=== PATIENT | female | born 1975 | race Caucasian/White ===

== ENCOUNTER 2023-08-12 10:46 | Emergency (ER) | payer SELFPAY ==
[2023-08-12] VITALS (17 sets, daily range): BP systolic 130–151; BP diastolic 87–96; PULSE 64–96; RESP 13–24; TEMP 36.7; O2SAT 82–99; BMI 40.8
--- NOTE | 2023-08-12 11:05 | ECG_ITS ---
[facility] Test Date: 2023-08-12 Pat Name: FERNANDO HENRIQUEZ Department: Room: - Gender: Female Paralegals: : 1975 Requested By: Order Number: [id number] Reading MD: MADDIE ALCANTARA Measurements Intervals [place] Rate: 78 P: 68 TX: 160 QRS: 33 QRSD: 80 T: 46 QT: 376 QTc: 409 Interpretive Statements 1100 Sinus rhythm 8102 Low QRS voltage in chest leads 9120 atypical ECG No previous ECG available for comparison Electronically Signed On 08-13-2023 12:35:09 EDT by MADDIE ALCANTARA
[2023-08-12 11:42] LABS: Creatine Kinase 115 U/L (26-192)
[2023-08-12 11:45] LABS: Basophils Absolute Auto 0.1 10^3/uL (0.0-0.1); Basophils Percent Auto 0.9 % (0.2-2.0); Eosinophils Percent Auto 0.3 % (0.9-7.0); Hematocrit 42.3 % (36.0-48.0); Hemoglobin 14.1 g/dL (12.0-16.0); Immature Granulocytes Abs Auto 0.06 10^3/uL (0.00-0.03); Immature Granulocytes Pct Auto 0.8 % (0.0-0.5); Lymphocytes Absolute Auto 0.8 10^3/uL (1.2-3.8); Lymphocytes Percent Auto 10.5 % (20.5-60.0); Mean Corpuscular HGB Conc 33.3 g/dL (29.9-35.2); Mean Corpuscular Hemoglobin 29.5 pg (26.7-34.0); Mean Corpuscular Volume 88.5 fL (81.0-99.0); Mean Platelet Volume 11.1 fL (9.5-13.5); Monocytes Absolute Auto 0.2 10^3/uL (0.3-0.8); Monocytes Percent Auto 2.5 % (1.7-12.0); Neutrophils Absolute Auto 6.7 10^3/uL (1.4-6.5); Platelet Count 203 10^3/uL (150-450); Red Blood Count 4.78 10^6/uL (4.20-5.40); Red Cell Distribution Width 12.1 % (11.0-15.0); White Blood Count 7.9 10^3/uL (4.0-11.0)
[2023-08-12 11:46] LABS: Alanine Aminotransferase 23 U/L (14-59); Albumin Globulin Ratio 1.1; Albumin Level 3.7 g/dL (3.4-5.0); Alkaline Phosphatase 53 U/L (46-116); Anion Gap 11.4; Aspartate Amino Transferase 6 U/L (15-37); BUN Creatinine Ratio 11.2; Bilirubin Total 0.6 mg/dL (0.2-1.0); Calcium 8.6 mg/dL (8.5-10.1); Carbon Dioxide 27.1 mmol/L (21.0-32.0); Chloride 100 mmol/L (98-107); Estimated GFR (African America >60 (>=60); Estimated GFR (Non-African Ame 50 (>=60); Globulin 3.3 g/dL; Glucose 101 mg/dL (74-106); Potassium 4.5 mmol/L (3.5-5.1); Sodium 134 mmol/L (136-145); Troponin I High Sensitivity 6.7 pg/mL (4.0-51.3)
--- NOTE | 2023-08-12 12:25 | XR_ITS ---
The [address] [address] Patient Name: FERNANDO HENRIQUEZ MRN: [id number] date: 1975 Sex: F Assigned Patient Location: ER Current Patient Location: ER Accession/Order Number: [id number] Exam Date: 08/12/2023 12:30 Report Date: 08/12/2023 12:46 At the request of: RONAL MASON Procedure: XR chest 1V EXAM: XR chest 1V HISTORY: . shortness of breath . COMPARISON: None. TECHNIQUE: Single view of the chest FINDINGS: Heart and vascularity unremarkable. Lungs are free of focal infiltrates. Grossly no acute bony abnormality is appreciated. XR/XR chest 1V IMPRESSION: No acute heart or lung disease identified. Electronically authenticated by: MIGUEL PARKINSON Date: 08/12/2023 12:46
--- NOTE | 2023-08-12 12:43 | ED_ITS ---
HPI - General Adult General Chief complaint: Seizure Stated complaint: SEIZURE Time Seen by Provider: 08/12/23 12:43 Source: patient Mode of arrival: ambulance Limitations: no limitations History of Present Illness HPI narrative: Patient is a 48yo Who is presenting to the Emergency Room after she had seizure- like activity/tardive dyskinesia. Patient has long-standing history of seizure/seizure activity. Patient does take 25 mg of Lamictal twice a day. No other seizure medications patient takes. Patient was with her in the car today, they were running errands. Patient started having lip smacking, tardive dyskinesia-like activity then straighten out her arms and legs, and then had a shaking episode for approximately a few minutes, slightly foaming at the mouth and then stop. Patient did not bite her tongue. No incontinence in the car initially today. However, patient was in bed last night, patient woke up in the bed sheets were wet with urine, patient thinks that she might of had a s mall seizure when she is sleeping. Patient also had another episode in the Emergency Room after she was in the Emergency Room for about an hour where she started having lip smacking, slightly shaking, and patient did urinate herself. Patient says that she was just admitted at [facility] 1?1.5 months ago from Tuesday through Tuesday to have continuous EEG monitoring and evaluation and multiple testing done by her neurologist. Patient's Neurologist is Dr. Montoya. Patient is here with and mother. Patient's last seizure before this episode last evening when she is sleeping and today was , early July of this year. Patient was at [facility] admitted for one week 1?1.5. Patient currently has no headache, no chest pain or shortness of breath. No bowel pain, nausea vomiting. . All systems are negative except as noted/marked. All systems reviewed and otherwise negative. . Nurses note and vital signs reviewed and patient is not hypoxic. General: The patient appears well and in no apparent distress. Patient is resting comfortably on cart. Patient is not toxic, lethargic, or listless Skin: Warm, dry, no pallor noted. There is no rash noted. No petechiae, purpura. Head: Normocephalic, atraumatic, Patient has no abrasions, lacerations or cut song noted to her tongue. Eye: Normal conjunctiva, no drainage, EOMI. PERRL Ears, Nose, Mouth, and Throat: oral mucosa is moist. Nares patent. Mouth without vesicles. Cardiovascular: Regular Rate and Rhythm, no murmur, gallop, rub. Respiratory: Patient is in no distress, no accessory muscle use, lungs are clear to auscultation, no wheezing, rales or rhonchi. Back: non-tender, no CVA tenderness bilaterally to percussion. No CT LS midline pain GI: soft, obese, no tenderness to palpation, no masses appreciated. No rebound, guarding, or rigidity noted. No flank pain bilateral, No distention Musculoskeletal: Patient has full range of motion of all of the extremities, no motor, sensory, or focal neurological deficits Neurological: A&O x3, normal speech Psychiatric: Cooperative Related Data Home Medications Medication Instructions Recorded Confirmed hydrochlorothiazide 25 mg tablet 25 mg PO DAILY 08/12/23 08/12/23 lamotrigine 25 mg tablet 50 mg PO DAILY 08/12/23 08/12/23 lisinopril 40 mg tablet 40 mg PO DAILY 08/12/23 08/12/23 Previous Rx's Medication Instructions Recorded lamotrigine 25 mg tablet (Lamictal) 50 mg PO DAILY 14 days #28 tabs 08/12/23 Allergies Allergy/AdvReac Type Severity Reaction Status Date / Time midazolam [From Versed] Allergy Severe Hives Verified 08/12/23 10:50 Exam Constitutional Vital Signs, click to edit/add: Last Vital Signs Temp 98.1 F 08/12/23 10:50 Pulse 71 08/12/23 13:30 Resp 13 08/12/23 13:30 BP 130/95 H 08/12/23 13:30 Pulse Ox 98 08/12/23 13:30 O2 Del Method Room Air 08/12/23 11:02 Course Vital Signs Vital signs: Vital Signs Temperature 98.1 F 08/12/23 10:50 Pulse Rate 81 08/12/23 10:50 Respiratory Rate 20 08/12/23 10:50 Blood Pressure 134/96 H 08/12/23 10:50 Pulse Oximetry 97 08/12/23 10:50 Oxygen Delivery Method Room Air 08/12/23 10:50 Temperature 98.1 F 08/12/23 10:50 Pulse Rate 71 08/12/23 13:30 Respiratory Rate 13 08/12/23 13:30 Blood Pressure 130/95 H 08/12/23 13:30 Pulse Oximetry 98 08/12/23 13:30 Oxygen Delivery Method Room Air 08/12/23 11:02 Medical Decision Making MDM Narrative Medical decision making narrative: I did speak to Dr. Manriquez twice, at 1328 and again at 1350. He has spoken to Dr. Montoya and also has spoken to test technician's. Patient is currently taking 25 mg twice a day of Lamictal. Recommended patient start taking 50 mg twice a day, , patient does not need to be admitted and observed in the hospital overnight at [facility] or [facility] because she's had multiple, multiple tests done and not able to find any etiology for these episodes of heart eye dyskinesia or seizures. 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 Patient is comfortable going home along with and mother bedside is comfortable with this as well. Patient started to have another episode where she has some lip smacking when I was discussing the discharge, increasing medication and following up on Tuesday with PCP. When I left the room, patient stopped the lip smacking and she never had shaking or seizure-like activity with her arms or legs. Patient is able walk on they are no difficulty. Patient and family do still feel comfortable taking her home, they are aware that he another episode or 2 could happen this weekend, they understand if any other acute concerns occur, pt was recommended to return to the Emergency Room. Lab Data Lab results reviewed: Yes I reviewed the patient's lab results Labs: Lab Results 08/12/23 08/12/23 08/12/23 Range/Units 11:20 12:34 12:45 WBC 7.9 (4.0-11.0) 10^3/uL RBC 4.78 (4.20-5.40) 10^6/uL Hgb 14.1 (12.0-16.0) g/dL Hct 42.3 (36.0-48.0) % MCV 88.5 (81.0-99.0) fL MCH 29.5 (26.7-34.0) pg MCHC 33.3 (29.9-35.2) g/dL RDW 12.1 (11.0-15.0) % Plt Count 203 (150-450) 10^3/uL MPV 11.1 (9.5-13.5) fL Neut % (Auto) 85.0 H (43.0-75.0) % Lymph % (Auto) 10.5 L (20.5-60.0) % [place] % (Auto) 2.5 (1.7-12.0) % Eos % (Auto) 0.3 L (0.9-7.0) % Baso % (Auto) 0.9 (0.2-2.0) % Neut # (Auto) 6.7 H (1.4-6.5) 10^3/uL Lymph # (Auto) 0.8 L (1.2-3.8) 10^3/uL [place] # (Auto) 0.2 L (0.3-0.8) 10^3/uL Eos # (Auto) 0.0 (0.0-0.7) 10^3/uL Baso # (Auto) 0.1 (0.0-0.1) 10^3/uL Abs Immat Gran (auto) 0.06 H (0.00-0.03) 10^3/uL Imm/Tot Granulo (auto) 0.8 H (0.0-0.5) % Sodium 134 L (136-145) mmol/L Potassium 4.5 (3.5-5.1) mmol/L Chloride 100 (98-107) mmol/L Carbon Dioxide 27.1 (21.0-32.0) mmol/L Anion Gap 11.4 BUN 13.0 (7.0-18.0) mg/dL Creatinine 1.16 H (0.55-1.02) mg/dL Est GFR ( Amer) >60 (>=60) Est GFR (Non-Af Amer) 50 L (>=60) BUN/Creatinine Ratio 11.2 Glucose 101 (74-106) mg/dL Calcium 8.6 (8.5-10.1) mg/dL Total Bilirubin 0.6 (0.2-1.0) mg/dL AST 6 L (15-37) U/L ALT 23 (14-59) U/L Alkaline Phosphatase 53 (46-116) U/L Total Creatine Kinase 115 (26-192) U/L Troponin I High Sens 6.7 (4.0-51.3) pg/mL Total Protein 7.0 (6.4-8.2) g/dL Albumin 3.7 (3.4-5.0) g/dL Globulin 3.3 g/dL Albumin/Globulin Ratio 1.1 Urine Color Lt. yellow (YELLOW) Urine Clarity Clear (CLEAR) Urine pH 7.0 (5.0-9.0) Ur Specific [place] 1.015 (1.005-1.025) Urine Protein Negative (NEG/TRACE) mg/dL Urine Glucose (UA) Negative (NEGATIVE) mg/dL Urine Ketones Negative (NEGATIVE) mg/dL Urine Occult Blood Negative (NEGATIVE) Urine Nitrite Negative (NEGATIVE) Urine Bilirubin Negative (NEGATIVE) Urine Urobilinogen 0.2 (0.2-1.0) EU/dL Ur Leukocyte Esterase Negative (NEGATIVE) Urine Opiates Screen Negative (NEGATIVE) Ur Buprenorphine Scrn Negative (NEGATIVE) Ur Oxycodone Screen Negative (NEGATIVE) Urine Methadone Screen Negative (NEGATIVE) Ur Propoxyphene Screen Negative (NEGATIVE) Ur Barbiturates Screen Negative (NEGATIVE) U Tricyclic Antidepress Negative (NEGATIVE) Ur Phencyclidine Scrn Negative (NEGATIVE) Ur Amphetamines Screen Negative (NEGATIVE) U Methamphetamines Scrn Negative (NEGATIVE) U Benzodiazepines Scrn Negative (NEGATIVE) Urine Cocaine Screen Negative (NEGATIVE) U Cannabinoids Screen Positive A (NEGATIVE) POC Glucose 117 H (74-106) mg/dL Patient is positive for marijuana, ECG Data Attestation: I personally reviewed and interpreted this ECG as follows: (EKG in terpretation. Normal sinus rhythm at 78 beats a minute. Normal axis deviation. No acute ST elevation, no acute ectopy. QTC of 409. ) Discharge Plan Discharge Chief Complaint: Seizure Clinical Impression: Generalized seizure Patient Disposition: Home, Self-Care Condition: Fair Prescriptions / Home Meds: New lamotrigine [Lamictal] 25 mg tablet 50 mg PO DAILY 14 Days Qty: 28 0RF No Action hydrochlorothiazide 25 mg tablet 25 mg PO DAILY lamotrigine 25 mg tablet 50 mg PO DAILY lisinopril 40 mg tablet 40 mg PO DAILY Instructions: Nonepileptic Seizures (ED), Recurrent Seizures in Adults (ED) Additional Instructions: You're going to start taking Lamictal 50mg Twice a day. You're currently taking 25 mg twice a day. A new prescription has been given to you as well. Continued to see her neurologist at your appointment on Tuesday. Stand Alone Forms: Portal Instructions Referrals: Physician,Non-Staff, MD [Primary Care Provider] - 1 week Discharge Date/Time: 08/12/23 14:24
[2023-08-12 12:54] LABS: Glucometer 117 mg/dL (74-106)
[2023-08-12 12:57] LABS: Bilirubin Urine NEGATIVE (NEGATIVE); Blood Urine NEGATIVE (NEGATIVE); Clarity Urine CLEAR (CLEAR); Color Urine LT. YELLOW (YELLOW); Glucose Urine UA NEGATIVE (NEGATIVE); Ketones Urine NEGATIVE (NEGATIVE); Leukocyte Esterase Urine NEGATIVE (NEGATIVE); Nitrite Urine NEGATIVE (NEGATIVE); Protein Urine NEGATIVE (NEG/TRACE); Specific Gravity Urine 1.015 (1.005-1.025); Urobilinogen Urine 0.2 EU/dL (0.2-1.0)
[2023-08-12 12:58] LABS: Urine Microscopic Indicated NO
[2023-08-12 13:06] LABS: Amphetamine Screen Urine NEGATIVE (NEGATIVE); Barbiturates Screen Urine NEGATIVE (NEGATIVE); Benzodiazepines Screen Urine NEGATIVE (NEGATIVE); Buprenorphine Screen Urine NEGATIVE (NEGATIVE); Cannabinoid Screen Urine POSITIVE (NEGATIVE); Cocaine Screen Urine NEGATIVE (NEGATIVE); Methadone Screen Urine NEGATIVE (NEGATIVE); Methamphetamines Screen Urine NEGATIVE (NEGATIVE); Opiate Screen Urine NEGATIVE (NEGATIVE); Oxycodone Screen Urine NEGATIVE (NEGATIVE); Phencyclidine Screen Urine NEGATIVE (NEGATIVE); Tricyclic Antidepressant Urine NEGATIVE (NEGATIVE)
== END 2023-08-12 14:24 | disposition home or self-care (01) ==
PROVIDERS: Emergency Provider Emergency Medicine
DX: G40.409 Other generalized epilepsy and epileptic syndromes, not intractable, without status epilepticus (principal); E66.9 Obesity, unspecified; Z68.41 Body mass index [BMI] 40.0-44.9, adult; Z79.899 Other long term (current) drug therapy
CPT/HCPCS: 36415; 71045; 80053; 80307; 81003; 82550; 84484; 85025; 93005; 99285